=== PATIENT | male | born 1965 | race Caucasian/White ===

== ENCOUNTER 2017-05-19 12:09 | Emergency (ER) | payer OTHER ==
[2017-05-19] MEDS ORDERED: Ondansetron 4 MG/2 ML SDV ONE (12:56)
[2017-05-19] MEDS ORDERED: Labetalol 100 MG/20 ML MDV ONE (12:59)
[2017-05-19 17:58] VITALS: BP 182/98
--- NOTE | 2017-05-19 18:19 | CR ---
EXAMINATION: Portable chest radiograph. HISTORY: Pain. FINDINGS: The trachea is midline. The cardiomediastinal silhouette is within normal limits. No pulmonary infilt rates, effusions or pneumothorax. Osseous structures appear unremarkable. IMPRESSION: No acute cardiopulmonary process.
--- NOTE | 2017-05-20 09:56 | CT ---
EXAMINATION: Non contrast CT head. Coronal and sagittal reformats. HISTORY: Pain FINDINGS: No evidence of intra or extra axial hemorrhage, mass, midline shift, hydrocephalus or edema. No hypoattenuation changes in the major vascular territories to suggest acute infarct. No abnormal intracranial calcifications are detected. No evidence of substantial vascular calcificat ions. Paranasal sinuses and mastoid air cells are well aerated without substantial findings. Orbits and gl obes are symmetric. Pituitary fossa appears unremarkable. Calvarium is intact. No evidence of skull fracture. IMPRESSION: No acute intracranial findings. The above findings were called to the ER at 3:36 PM.
[2017-05-20 13:44] LABS: CHLORIDE,CL 99 mmol/L (98-110); SODIUM,NA 135 mmol/L (136-146)
== END 2017-05-19 16:00 ==
LOC: MW.ED 12:09
DX: E86.0 Dehydration (principal); I10 Essential (primary) hypertension; E11.9 Type 2 diabetes mellitus without complications
CPT/HCPCS: 36415; 70450; 70450-26; 71010; 71010-26; 80053; 82150; 83690; 84484; 85025; 85610; 85730; 87804; 93005; 96361; 96374; 96375; 99284; 99284-25

== ENCOUNTER 2017-12-14 11:41 | Emergency (ER) | payer OTHER ==
[2017-12-14] MEDS ORDERED: Sodium Chloride 0.9% 2.5 ML Syringe FLUSH PRN (11:43)
[2017-12-14] MEDS ORDERED: Sodium Chloride 0.9% 10 ML Syringe FLUSH PRN (11:43)
--- NOTE | 2017-12-14 11:58 | EDM.PDOC ---
ED HPI GENERAL MEDICAL PROBLEM - General Chief Complaint: Neuro Symptoms/Deficits Stated Complaint: LEFT SIDE NUMB Time Seen by Provider: 12/14/17 11:43 Source of Information: Reports: Patient History Limitations: Reports: No Limitations - History of Present Illness INITIAL COMMENTS - FREE TEXT/NARRATIVE: History of present illness: Patient developed epigastric pain approximately 1 hour prior to arrival. The pain was in a small area and nonradiating. He doubled over in pain and then started dry heaving. Patient then noted difficulty speaking with a slurred speech, a burning along his left side of his face and left arm tingling. 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 He states the tingling is similar except in the past is only up to his left elbow now it's traveling down his left arm Patient has currently been moving has missed 2 days of his losartan. Review of systems: As per history of present illness and below otherwise all systems reviewed and negative. Past medical history: As per history of present illness and as reviewed below otherwise noncontributory. Surgical history: As per history of present illness and as reviewed below otherwise noncontributory. Social history: No reported history of drug or alcohol abuse. Family history: As per history of present illness and as reviewed below otherwise noncontributory. Physical exam: General: Well developed, well nourished in NAD HEENT: Atraumatic, normocephalic, pupils reactive, negative for conjunctival pallor or scleral icterus, mucous membranes moist, throat clear, neck supple, nontender, trachea midline. Lungs: Clear to auscultation, breath sounds equal bilaterally, chest nontender. Heart: S1S2, regular, negative for clicks, rubs, or JVD. Abdomen: Soft, nondistended, nontender. Negative for masses or hepatosplenomegaly. Negative for costovertebral tenderness. Pelvis: Stable nontender. Genitourinary: Deferred. Rectal: Deferred. Extremities: Atraumatic, negative for cords or calf pain. Neurovascular unremarkable. Neuro: Awake, alert, oriented. Cranial nerves II through XII unremarkable. Cerebellum unremarkable. Motor and sensory unremarkable throughout. Exam nonfocal. Diagnostics: []CT read as negative at 12:00, CBC negative, chemistries show mild hypokalemia 3.0, EKG shows no acute ischemic changes, troponin negative Therapeutics: []Potassium, losartan 100 mg by mouth Impression: []Uncontrolled blood pressure, TIA, hypokalemia Plan: []Patient refuses admission discharged AGAINST MEDICAL ADVICE, and will follow up with his primary care Definitive disposition and diagnosis as appropriate pending reevaluation and review of above. CT was negative bilaterally. Attentio - Related Data Allergies Allergy/AdvReac Type Severity Reaction Status Date / Time azithromycin Allergy Hives Verified 12/14/17 11:56 ibuprofen Allergy Shaking Verified 12/14/17 11:56 Home Meds: Home Meds Hydrochlorothiazide/Losartan [Hyzaar 100-25 MG] 1 tab PO DAILY 12/18/13 [History ] Dapagliflozin Propanediol [Farxiga] 10 mg PO DAILY 12/14/17 [History] Dulaglutide [Trulicity] 1 dose SQ DAILY 12/14/17 [History] Gabapentin [Neurontin] 300 mg PO TID 12/14/17 [History] Glimepiride 4 mg PO DAILY 12/14/17 [History] Metoprolol Succinate [Toprol XL 100mg] 100 mg PO DAILY 12/14/17 [History] Omeprazole 20 mg PO DAILY 12/14/17 [History] Rivaroxaban [Xarelto] 20 mg PO DAILY 12/14/17 [History] amLODIPine Besylate [Amlodipine Besylate] 10 mg PO DAILY 12/14/17 [History] atorvaSTATin [Lipitor] 40 mg PO DAILY 12/14/17 [History] Past Medical History HEENT History: Reports: None Cardiovascular History: Reports: Hypertension Respiratory History: Reports: None Gastrointestinal History: Reports: GERD Genitourinary History: Reports: None Musculoskeletal History: Reports: None Neurological History: Reports: None Psychiatric History: Reports: None Endocrine/Metabolic History: Reports: Diabetes, Type II Hematologic History: Reports: None Immunologic History: Reports: None Oncologic (Cancer) History: Reports: None Dermatologic History: Reports: None - Past Surgical History Head Surgeries/Procedures: Reports: None HEENT Surgical History: Reports: None Cardiovascular Surgical History: Reports: None Respiratory Surgical History: Reports: None GI Surgical History: Reports: None Male Surgical History: Reports: None Endocrine Surgical History: Reports: None Neurological Surgical History: Reports: None Musculoskeletal Surgical History: Reports: None Oncologic Surgical History: Reports: None Dermatological Surgical History: Reports: None Social & Family History - Family History Family Medical History: Noncontributory - Caffeine Use Caffeine Use: Reports: None ED ROS GENERAL - Review of Systems Review Of Systems: ROS reveals no pertinent complaints other than HPI. ED EXAM, NEURO - Physical Exam Exam: See Below (See history of present illness) Course - Vital Signs Last Recorded V/S: Last Vital Signs Temp 98.4 F 12/14/17 11:45 Pulse 86 12/14/17 12:58 Resp 18 12/14/17 12:58 BP 179/105 H 12/14/17 12:58 Pulse Ox 94 L 12/14/17 12:58 - Orders/Labs/Meds Orders: Active Orders 24 hr Category Date Time Status Assess Neurological Status [RC] ASDIRECTED Care 12/14/17 11:43 Active Bedrest [RC] ASDIRECTED Care 12/14/17 11:43 Active Blood Glucose Check, Bedside [RC] STAT Care 12/14/17 11:43 Active Cardiac Monitoring [RC] . DIRECTED Care 12/14/17 11:43 Active EKG Documentation Completion [RC] STAT Care 12/14/17 11:43 Active Height and Weight [RC] UPON Care 12/14/17 11:43 Active Initiate Acute Stroke Protocol [RC] STAT Care 12/14/17 11:43 Active NIH Stroke Scale [RC] ASDIRECTED Care 12/14/17 11:43 Active Nursing Bedside Swallow Screen [RC] ASDIRECTED Care 12/14/17 11:43 Active Oxygen Therapy [RC] ASDIRECTED Care 12/14/17 11:43 Active Stroke Education, General [RC] Click to Edit Care 12/14/17 11:43 Active Vital Signs [RC] Q15M Care 12/14/17 11:43 Active Sodium Chloride 0.9% [Saline Flush] Med 12/14/17 11:43 Active 10 ml FLUSH ASDIRECTED PRN Sodium Chloride 0.9% [Saline Flush] Med 12/14/17 11:43 Active 2.5 ml FLUSH ASDIRECTED PRN Peripheral IV Insertion Adult [OM.PC] Stat Oth 12/14/17 11:43 Ordered Peripheral IV Insertion Adult [OM.PC] Stat Oth 12/14/17 11:43 Ordered Medication Orders Sodium Chloride (Saline Flush) 10 ml FLUSH ASDIRECTED PRN PRN Reason: Keep Vein Open Last Admin: 12/14/17 12:06 Dose: 10 ml Sodium Chloride (Saline Flush) 2.5 ml FLUSH ASDIRECTED PRN PRN Reason: Keep Vein Open Last Admin: 12/14/17 12:06 Dose: 2.5 ml Labs: Laboratory Tests 12/14/17 12/14/17 12/14/17 Range/Units 12:07 12:07 12:07 WBC 8.67 (4.0-11.0) K/uL RBC 4.87 (4.50-5.90) M/uL Hgb 14.9 (13.0-17.0) g/dL Hct 41.7 (38.0-50.0) % MCV 85.6 (80.0-98.0) fL MCH 30.6 (27.0-32.0) pg MCHC 35.7 (31.0-37.0) g/dL RDW Std Deviation 41.7 (28.0-62.0) fl RDW Coeff of [place] 13 (11.0-15.0) % Plt Count 308 (150-400) K/uL MPV 10.30 (7.40-12.00) fL Neut % (Auto) 68.6 (48.0-80.0) % Lymph % (Auto) 19.7 (16.0-40.0) % Crook % (Auto) 8.4 (0.0-15.0) % Eos % (Auto) 2.7 (0.0-7.0) % Baso % (Auto) 0.6 (0.0-1.5) % Neut # (Auto) 6.0 H (1.4-5.7) K/uL Lymph # (Auto) 1.7 (0.6-2.4) K/uL Crook # (Auto) 0.7 (0.0-0.8) K/uL Eos # (Auto) 0.2 (0.0-0.7) K/uL Baso # (Auto) 0.1 (0.0-0.1) K/uL Nucleated RBC % 0.0 /100WBC Nucleated RBCs # 0 K/uL INR 0.94 APTT 26.8 (18.6-31.3) SEC Sodium 136 (136-148) mmol/L Potassium 3.0 L (3.5-5.1) mmol/L Chloride 101 (98-107) mmol/L Carbon Dioxide 26.8 (21.0-32.0) mmol/L BUN 13 (7.0-18.0) mg/dL Creatinine 1.4 H (0.8-1.3) mg/dL Est Cr Clr Drug Dosing TNP Estimated GFR (MDRD) 52.8 ml/min Glucose 276 H (74-106) mg/dL Calcium 8.3 L (8.5-10.1) mg/dL Total Bilirubin 0.5 (0.2-1.0) mg/dL AST 20 (15-37) IU/L ALT 30 (14-63) IU/L Alkaline Phosphatase 102 (46-116) U/L Troponin I < 0.050 (0.000-0.056) ng/mL Total Protein 7.4 (6.4-8.2) g/dL Albumin 3.2 L (3.4-5.0) g/dL Globulin 4.2 H (2.0-3.5) g/dL Albumin/Globulin Ratio 0.8 L (1.3-2.8) TSH 3rd Generation 3.80 H (0.36-3.74) uIU/mL Meds: Medications Generic Name Dose Route Start Last Admin Trade Name Freq PRN Reason Stop Dose Admin Sodium Chloride 10 ml 12/14/17 11:43 12/14/17 12:06 Saline Flush FLUSH 10 ml ASDIRECTED PRN Administration Keep Vein Open Sodium Chloride 2.5 ml 12/14/17 11:43 12/14/17 12:06 Saline Flush FLUSH 2.5 ml ASDIRECTED PRN Administration Keep Vein Open Discontinued Medications Generic Name Dose Route Start Last Admin Trade Name Freq PRN Reason Stop Dose Admin Losartan Potassium 100 mg 12/14/17 13:20 Cozaar PO 12/14/17 13:21 ONETIME ONE Potassium Chloride 40 meq 12/14/17 13:10 12/14/17 13:19 Klor-Con M20 PO 12/14/17 13:11 40 meq ONETIME ONE Administration Departure - Departure Time of Disposition: 13:24 Disposition: Against Medical Advice 07 Condition: Fair Clinical Impression: Uncontrolled hypertension, TIA (transient ischemic attack), Hypokalemia - Discharge Information *PRESCRIPTION DRUG MONITORING PROGRAM REVIEWED*: Not Applicable *COPY OF PRESCRIPTION DRUG MONITORING REPORT IN PATIENT ALEJANDRO: Not Applicable Forms: ED Department Discharge Additional Instructions: The following information is given to patients seen in the emergency department who are being discharged to home. This information is to outline your options for follow-up care. We provide all patients seen in our emergency department with a follow-up referral. The need for follow-up, as well as the timing and circumstances, are variable depending upon the specifics of your emergency department visit. If you don't have a primary care physician on staff, we will provide you with a referral. We always advise you to contact your personal physician following an emergency department visit to inform them of the circumstance of the visit and for follow-up with them and/or the need for any referrals to a consulting specialist. The emergency department will also refer you to a specialist when appropriate. This referral assures that you have the opportunity for follow-up care with a specialist. All of these measure are taken in an effort to provide you with optimal care, which includes your follow-up. Under all circumstances we always encourage you to contact your private physician who remains a resource for coordinating your care. When calling for follow-up care, please make the office aware that this follow-up is from your recent emergency room visit. If for any reason you are refused follow-up, please contact the [facility] Emergency Department at and asked to speak to the emergency department charge nurse. Continue regular medicines and follow-up with her primary care within 1 week. [facility] [address] [place] [id number] - My Orders Last 24 Hours: My Active Orders 12/14/17 11:43 Assess Neurological Status [RC] ASDIRECTED Bedrest [RC] ASDIRECTED Blood Glucose Check, Bedside [RC] STAT Cardiac Monitoring [RC] . DIRECTED EKG Documentation Completion [RC] STAT Height and Weight [RC] UPON Initiate Acute Stroke Protocol [RC] STAT NIH Stroke Scale [RC] ASDIRECTED Nursing Bedside Swallow Screen [RC] ASDIRECTED Oxygen Therapy [RC] ASDIRECTED Stroke Education, General [RC] Click to Edit Vital Signs [RC] Q15M Sodium Chloride 0.9% [Saline Flush] 10 ml FLUSH ASDIRECTED PRN Sodium Chloride 0.9% [Saline Flush] 2.5 ml FLUSH ASDIRECTED PRN Peripheral IV Insertion Adult [OM.PC] Stat Peripheral IV Insertion Adult [OM.PC] Stat - Assessment/Plan Last 24 Hours: My Active Orders 12/14/17 11:43 Assess Neurological Status [RC] ASDIRECTED Bedrest [RC] ASDIRECTED Blood Glucose Check, Bedside [RC] STAT Cardiac Monitoring [RC] . DIRECTED EKG Documentation Completion [RC] STAT Height and Weight [RC] UPON Initiate Acute Stroke Protocol [RC] STAT NIH Stroke Scale [RC] ASDIRECTED Nursing Bedside Swallow Screen [RC] ASDIRECTED Oxygen Therapy [RC] ASDIRECTED Stroke Education, General [RC] Click to Edit Vital Signs [RC] Q15M Sodium Chloride 0.9% [Saline Flush] 10 ml FLUSH ASDIRECTED PRN Sodium Chloride 0.9% [Saline Flush] 2.5 ml FLUSH ASDIRECTED PRN Peripheral IV Insertion Adult [OM.PC] Stat Peripheral IV Insertion Adult [OM.PC] Stat
--- NOTE | 2017-12-14 12:03 | CT ---
EXAMINATION: Non contrast CT head. Coronal and sagittal reformats. HISTORY: Stroke code FINDINGS: No evidence of intra or extra axial hemorrhage, mass, midline shift, hydrocephalus or edema. No hypoattenuation changes in the major vascular territories to suggest acute infarct. No abnormal intracranial calcifications are detected. No evidence of substantial vascular calcificat ions. Paranasal sinuses and mastoid air cells are well aerated without substantial findings. Orbits and gl obes are symmetric. Pituitary fossa appears unremarkable. Calvarium is intact. No evidence of skull fracture. IMPRESSION: No acute intracranial findings. Above findings were called to the ER at 12:00 PM.
[2017-12-14 13:00] LABS: CHLORIDE,CL 101 mmol/L (98-107); SODIUM,NA 136 mmol/L (136-148)
[2017-12-14] MEDS ORDERED: Potassium Chloride 20 MEQ Tab.ER PO ONE (13:10)
[2017-12-14] MEDS ORDERED: Losartan 50 MG Tab PO ONE (13:20)
[2017-12-14 13:43] VITALS: BP 165/105
== END 2017-12-14 13:43 | disposition left against medical advice (07) ==
LOC: MW.ED 11:41
DX: G45.9 Transient cerebral ischemic attack, unspecified (principal); I10 Essential (primary) hypertension; E87.6 Hypokalemia; E11.9 Type 2 diabetes mellitus without complications; K21.9 Gastro-esophageal reflux disease without esophagitis; Z88.1 Allergy status to other antibiotic agents; Z88.6 Allergy status to analgesic agent; Z79.899 Other long term (current) drug therapy; Z86.73 Personal history of transient ischemic attack (TIA), and cerebral infarction without residual deficits
CPT/HCPCS: 36415; 70450; 80053; 84443; 84484; 85025; 85610; 85730; 93005; 99285; A9270